=== PATIENT | female | born 1995 ===

== ENCOUNTER → 2023-10-09 | Outpatient (CLI) | payer OTHER ==
[2023-10-09 15:52] LABS: U Amphetamine Screen Not Detected; U Barbituate Screen Not Detected; U Benzodiazapine Screen Not Detected; U Buprenorphine Screen Not Detected; U Cannabinoids Screen Not Detected; U Cocaine Screen Not Detected; U Methadone Screen Not Detected; U Methamphetamine Screen Not Detected; U Opiates Screen Not Detected; U Oxycodone Screen Not Detected; U Phencyclidine Screen Not Detected
== END | disposition home or self-care (01) ==
LOC: LAB 15:02 → LAB SHORT 15:02
PROVIDERS: Internal Medicine Critical Care Medicine
DX: R40.0 Somnolence (principal)

== ENCOUNTER → 2023-11-02 | Outpatient (CLI) | payer OTHER | LOC: LAB SHORT 10:50 → LAB 10:50 | DX: Z31.41 Encounter for fertility testing (principal) | CPT/HCPCS: 84144 ==

== ENCOUNTER → 2024-07-14 | Outpatient (CLI) | payer OTHER, BC | END | disposition home or self-care (01) | LOC: LAB SHORT 13:43 → LAB 13:43 | DX: O09.90 Supervision of high risk pregnancy, unspecified, unspecified trimester (principal) | CPT/HCPCS: 87081; 87150 ==

== ENCOUNTER 2024-08-03 15:37 | Inpatient (IN) | payer OTHER, BC ==
[2024-08-03] VITALS (25 sets, daily range): BP systolic 104–139; BP diastolic 55–81
[~2024-08-03] VITALS: Ht 170.2 cm; Wt 87.2 kg
--- NOTE | 2024-08-03 16:18 | NUR ---
PT C/O INCREASED CRAMPING WITH BF. TYLENOL GIVEN
[2024-08-03] MEDS ORDERED: Carboprost Tromethamine 250 MCG/ML 1ML Amp IM PRN (17:10)
[2024-08-03] MEDS ORDERED: Misoprostol 200 MCG Tab BC PRN (17:10)
[2024-08-03] MEDS ORDERED: Tranexamic Acid 100 ML IV SCH (17:10)
[2024-08-03] MEDS ORDERED: Methylergonovine Maleate 0.2MG / ML 1ML Amp IM PRN (17:10)
[2024-08-03] MEDS ORDERED: Acetaminophen 500 MG Tab PO PRN (17:10)
[2024-08-03] MEDS ORDERED: Oxytocin 10 Unit / ML Vial IM PRN (17:10)
[2024-08-03] MEDS ORDERED: Lactated Ringer's 1,000 ML IV SCH ×2 (17:10)
[2024-08-03] MEDS ORDERED: Calcium Carbonate 500 MG Tab Chew PO PRN (17:10)
[2024-08-03] MEDS ORDERED: Ondansetron HCl 2 MG / ML 2ML Vial IV PRN (17:10)
[2024-08-03] MEDS ORDERED: FentaNYL 2mcg/ml-Bup 0.1% Epd 250 ML EPI PRN (17:10)
[2024-08-03] MEDS ORDERED: ePHEDrine Sulfate 50 MG/ML 1ML Injection XX PRN (17:10)
[2024-08-03] MEDS ORDERED: OXYTOCIN/RINGER'S LACTATE 500 ML IV PRN (17:10)
[2024-08-03] MEDS ORDERED: Lactated Ringer's 1,000 ML IV PRN (17:10)
[2024-08-03] MEDS ORDERED: Misoprostol 200 MCG Tab PR PRN (17:10)
[2024-08-03] MEDS ORDERED: FentaNYL Citrate 50 MCG/ML 2 ML Injection IV PRN (17:10)
[2024-08-03] MEDS ORDERED: OXYTOCIN/RINGER'S LACTATE 500 ML IV ONE (17:11)
[2024-08-03] MEDS ORDERED: Lactated Ringer's 1,000 ML IV ONE ×2 (17:11→22:35)
[2024-08-03] MEDS ORDERED: Methylergonovine Maleate 0.2MG / ML 1ML Amp ONE (17:11)
[2024-08-03] MEDS ORDERED: ESCI10 PO (17:18)
[2024-08-03] MEDS ORDERED: PRENATAL TABLE1 EAC2 PO (17:18)
[2024-08-03 17:33] LABS: BASOPHILS ABSOLUTE AUTO 0.03 K/mm3 (0.00-0.23); BASOPHILS PERCENT AUTO 0 % (0-2); EOSINOPHILS ABSOLUTE AUTO 0.01 K/mm3 (0.00-0.68); EOSINOPHILS PERCENT AUTO 0 % (0-6); Hematocrit 41.3 % (33.0-51.0); Hemoglobin 13.9 g/dL (11.5-16.0); IMMATURE GRAN ABSOLUTE AUTO 0.03 K/mm3 (0.00-0.10); IMMATURE GRAN PERCENT AUTO 0 % (0-1); LYMPHOCYTES ABSOLUTE AUTO 1.84 K/mm3 (0.84-5.20); LYMPHOCYTES PERCENT AUTO 17 % (21-46); MONOCYTES ABSOLUTE AUTO 0.76 K/mm3 (0.16-1.47); MONOCYTES PERCENT AUTO 7 % (4-13); Mean Corpuscular HGB 28.3 pg (26.0-34.0); Mean Corpuscular HGB Conc 33.7 g/dL (31.5-36.5); Mean Corpuscular Volume 84 fL (80-100); Mean Platelet Volume 9.9 fL (9.1-12.4); NEUTROPHILS ABSOLUTE AUTO 8.24 K/mm3 (1.96-9.15); NEUTROPHILS PERCENT AUTO 75 % (41-73); Platelet Count 201 K/mm3 (150-400); RDW Coefficient Variation 15.8 % (11.7-14.2); RDW Standard Deviation 48.1 fL (35.1-46.3); Red Blood Cell Count 4.92 M/mm3 (3.80-5.20); White Blood Cell Count 10.91 K/mm3 (4.00-11.30)
[2024-08-03] MEDS ORDERED: OXYTOCIN/RINGER'S LACTATE 500 ML IV SCH (22:35)
[2024-08-04] VITALS (21 sets, daily range): BP systolic 94–136; BP diastolic 53–83
[2024-08-04] MEDS ORDERED: FLU VACC TS2024-25(6MOS UP)/PF 45 MCG/0.5 ML SYRINGE IM ONE (03:35)
[2024-08-04] MEDS ORDERED: Ibuprofen 400 MG Tab PO PRN (03:35)
[2024-08-04] MEDS ORDERED: Benzocaine Topical Anesthetic Spray 60GM TOP PRN (03:35)
[2024-08-04] MEDS ORDERED: Witch Hazel/Glycerin PADS TOP PRN (03:35)
[2024-08-04] MEDS ORDERED: Polyethylene Glycol 3350 17 gm PO PRN (03:40)
[2024-08-04] MEDS ORDERED: Lanolin Cream TOP PRN (03:40)
[2024-08-04] MEDS ORDERED: Acetaminophen 325 MG TABLET PO PRN (03:40)
[2024-08-04] MEDS ORDERED: Lactated Ringer's 1,000 ML IV SCH (03:40)
[2024-08-04 05:38] LABS: Hematocrit 34.2 % (33.0-51.0); Hemoglobin 11.2 g/dL (11.5-16.0); Mean Corpuscular HGB 27.8 pg (26.0-34.0); Mean Corpuscular HGB Conc 32.7 g/dL (31.5-36.5); Mean Corpuscular Volume 85 fL (80-100); Mean Platelet Volume 10.3 fL (9.1-12.4); Platelet Count 180 K/mm3 (150-400); RDW Coefficient Variation 15.7 % (11.7-14.2); Red Blood Cell Count 4.03 M/mm3 (3.80-5.20); White Blood Cell Count 14.73 K/mm3 (4.00-11.30)
[2024-08-04] MEDS ORDERED: Ketorolac Tromethamine 30mg Vial IV SCH (06:00)
[2024-08-04] MEDS ORDERED: Prenatal Vit/FE Fumarate/FA 1 Tab PO SCH (09:00)
--- NOTE | 2024-08-04 14:38 | NUR ---
08/04/2024 1020 LATE ENTRY PATIENT UP TO BATHROOM, PATIENT FELT LIGHTHEADED AND DIZZY. VOIDED. PATIENT BACK TO BED WITH INSTRUCTIONS TO CALL PRIOR TO GETTING OUT OF BED. PLAN TO TAKE A NAP. INSTRUCTED TO CALL IF THEY HAD ANY NEEDS. PATIENT STATES UNDERSTANDING.
[2024-08-05 05:12] VITALS: BP 98/52
[2024-08-05 08:16] VITALS: BP 121/73
[2024-08-05 12:10] VITALS: BP 116/57
[2024-08-05] MEDS ORDERED: FLU VACC TS2024-25(6MOS UP)/PF 45 MCG/0.5 ML SYRINGE IM SCH (14:20)
== END 2024-08-05 15:00 | disposition home or self-care (01) | DRG 807 ==
LOC: OBS 15:37 → BC 15:37 → OBS 16:59 → BC 17:00
PROVIDERS: Family Medicine; ADMIT Obstetrics & Gynecology
PROC: 10E0XZZ Delivery of Products of Conception, External Approach (ICD-10-PCS; principal; 2024-08-03)
PROC: 0KQM0ZZ Repair Perineum Muscle, Open Approach (ICD-10-PCS; 2024-08-03)
PROC: 3E0R3BZ Introduction of Anesthetic Agent into Spinal Canal, Percutaneous Approach (ICD-10-PCS; 2024-08-03)
PROC: 00HU33Z Insertion of Infusion Device into Spinal Canal, Percutaneous Approach (ICD-10-PCS; 2024-08-03)
PROC: 10907ZC Drainage of Amniotic Fluid, Therapeutic from Products of Conception, Via Natural or Artificial Opening (ICD-10-PCS; 2024-08-03)
DX: O99.344 Other mental disorders complicating childbirth (principal); Z37.0 Single live birth; F41.9 Anxiety disorder, unspecified; O77.0 Labor and delivery complicated by meconium in amniotic fluid; Z3A.38 38 weeks gestation of pregnancy; O69.81X0 Labor and delivery complicated by cord around neck, without compression, not applicable or unspecified; O70.1 Second degree perineal laceration during delivery
CPT/HCPCS: 36415; 51702; 59025; 85025; 85027; 86850; 86900; 86901; 99214; A9270; J1885; J2405; J2590; J3010; J7120

== ENCOUNTER → 2025-09-26 | Outpatient (CLI) | payer OTHER, BC ==
[~2025-09-26] MED LIST: ESCI10 PO; Norethindrone0.35 MG PO; PRENATAL TABLE1 EAC2 PO
== END ==
LOC: LAB 11:40 → LAB SHORT 11:40
DX: Z34.91 Encounter for supervision of normal pregnancy, unspecified, first trimester (principal)
CPT/HCPCS: 84702

== ENCOUNTER 2025-09-27 23:16 | Emergency (ER) | payer OTHER, BC ==
[~2025-09-27] VITALS: Ht 170.2 cm; Wt 72.6 kg
[2025-09-27] MEDS ORDERED: Ondansetron HCl 2 MG / ML 2ML Vial IV ONE (23:50)
[2025-09-27] MEDS ORDERED: NS 1,000 ML IV SCH (23:50)
[2025-09-28 00:16] LABS: BASOPHILS ABSOLUTE AUTO 0.05 K/mm3 (0.00-0.23); BASOPHILS PERCENT AUTO 1 % (0-2); EOSINOPHILS ABSOLUTE AUTO 0.07 K/mm3 (0.00-0.68); EOSINOPHILS PERCENT AUTO 1 % (0-6); Hematocrit 40.1 % (33.0-51.0); Hemoglobin 13.8 g/dL (11.5-16.0); IMMATURE GRAN ABSOLUTE AUTO 0.01 K/mm3 (0.00-0.10); IMMATURE GRAN PERCENT AUTO 0 % (0-1); LYMPHOCYTES ABSOLUTE AUTO 2.66 K/mm3 (0.84-5.20); LYMPHOCYTES PERCENT AUTO 35 % (21-46); MONOCYTES ABSOLUTE AUTO 0.71 K/mm3 (0.16-1.47); MONOCYTES PERCENT AUTO 9 % (4-13); Mean Corpuscular HGB Conc 34.4 g/dL (31.5-36.5); Mean Corpuscular Volume 88 fL (80-100); NEUTROPHILS ABSOLUTE AUTO 4.20 K/mm3 (1.96-9.15); NEUTROPHILS PERCENT AUTO 55 % (41-73); NRBC ABSOLUTE 0.00 K/mm3 (0.00-0.02); NRBC Auto 0.0 /100 WBC (0.0-0.2); Platelet Count 185 K/mm3 (150-400); RDW Coefficient Variation 13.6 % (11.7-14.2); RDW Standard Deviation 43.8 fL (35.1-46.3)
[2025-09-28 00:51] LABS: Alanine Aminotransfer (ALT/SGP 20.0 U/L (12-78); Albumin, Blood 3.8 g/dL (3.4-5.0); Albumin/Globulin Ratio 1.2 (0.8-1.8); Anion Gap 4.0 mmol/L (3-11); Aspartate Aminotrans (AST/SGOT 13.0 U/L (12-37); Beta HCG, Quantitative, Serum 2551.0 mIU/mL (0-3); Bilirubin, Total 0.4 mg/dL (0.1-1.0); Blood Urea Nitrogen 11.0 mg/dL (8-24); CO2, Blood 27.0 mmol/L (21-32); Calcium, Blood 9.3 mg/dL (8.5-10.1); Chloride, Blood 108.0 mmol/L (98-108); Creatinine, Blood 0.56 mg/dL (0.40-1.00); Globulin, Blood 3.1 g/dL (2.2-4.0); Glucose, Blood 101.0 mg/dL (70-99); Potassium, Blood 3.8 mmol/L (3.5-5.5); Sodium, Blood 135.0 mmol/L (136-145); Total Protein, Blood 6.9 g/dL (6.4-8.2)
[2025-09-28 01:40] VITALS: BP 113/72
== END 2025-09-28 01:40 | disposition home or self-care (01) ==
LOC: ER 23:16
PROVIDERS: Emergency Medicine
DX: O03.89 Complete or unspecified spontaneous abortion with other complications (principal); R42 Dizziness and giddiness; Z79.899 Other long term (current) drug therapy
CPT/HCPCS: 76830; 76856; 80053; 84702; 85025; 86900; 86901; 96361; 96374; 99284-25; J2405; J7030